=== PATIENT | male | born 2005 | race African-American/Black ===

== ENCOUNTER 2025-04-29 13:19 | Inpatient (IN) | payer OTHER ==
[~2025-04-29] VITALS: Ht 175.3 cm; Wt 63.6 kg
[2025-04-29 14:05] LABS: PLATELET COUNT (AUTO) 238 K/uL (150-450); RED BLOOD CELL COUNT(AUTO) 4.57 MIL/uL (4.50-5.90); RED CELL DISTRIBUTION WIDTH 13.2 % (11.5-14.5); WHITE BLOOD COUNT (AUTO) 3.1 K/uL (4.5-11.0)
[2025-04-29] MEDS: ONDANSETRON HCL 4 MG/2 ML VIAL IVP ONE (14:14)
[2025-04-29] MEDS: SODIUM CHLORIDE 0.9% 1,000 ML IV ONE (14:14)
[2025-04-29 14:16] LABS: CALCIUM, TOTAL 8.9 mg/dL (8.8-10.5); CREATININE 0.99 mg/dL (0.60-1.30); GLOMERULAR FILTR. RATE CALC > 60 mL/min (>60); GLUCOSE,RANDOM 153 mg/dL (70-110); SODIUM SERUM 139 mmol/L (136-145); UREA NITROGEN, BLOOD 12 mg/dL (7-18)
[2025-04-29 14:17] LABS: ACETONE, URINE NEGATIVE (NEGATIVE)
[2025-04-29 14:19] LABS: ASPARTATE AMINOTRANSFERASE 33 U/L (15-37); TOTAL PROTEIN, SERUM 7.9 g/dL (6.4-8.2)
[2025-04-29 15:00] LABS: ACETONE,BLOOD NEGATIVE (NEGATIVE)
[2025-04-29] MEDS ORDERED: ONDANSETRON HCL 4 MG/2 ML VIAL IVP PRN (15:15)
[2025-04-29 15:27] LABS: COVID AG,FIA SOURCE NASAL SWAB
[2025-04-29] MEDS: DOXYCYCLINE HYCLATE 100 MG TABLET PO ONE (15:30)
[2025-04-29] MEDS: EMTRICITABINE/TENOFOVIR 200-300 MG TABLET PO ONE (15:30)
[2025-04-29] MEDS: RALTEGRAVIR 400 MG TABLET PO ONE (15:30)
[2025-04-29 16:02] LABS: INFLUENZA TYPE A NEGATIVE FOR TYPE A (NEGATIVE); INFLUENZA TYPE B NEGATIVE FOR TYPE B (NEGATIVE); SARS-COV2 (COVID) ANTIGEN,FIA Negative (Negative)
[2025-04-29 16:25] VITALS: BP 118/56; PULSE 49; RESP 18; TEMP 97.2; O2SAT 100
[2025-04-29] MEDS: INSULIN LISPRO 100 UNITS/ML SQ PRN (17:35)
[2025-04-29 19:36] LABS: GLUCOMETER DEV NAME(LOC) 6N.1C; GLUCOSE,POINT OF CARE 241 MG/DL (70-110)
[2025-04-29] MEDS: INSULIN GLARGINE,HUM.REC.ANLOG 100 UNITS/ML SQ SCH (20:12)
[2025-04-29] MEDS: ACETAMINOPHEN 325 MG TABLET PO PRN (20:13)
[2025-04-29 20:17] LABS: APPEARANCE,URINE CLEAR (CLEAR); GLUCOSE, URINE (UA) 300-500 mg/dL (NEGATIVE); LEUKOCYTE ESTERASE ,URINE NEGATIVE (NEGATIVE); NITRATE,URINE NEGATIVE (NEGATIVE); OCCULT BLOOD,URINE NEGATIVE (NEGATIVE); SPECIFIC GRAVITIY, URINE 1.012 (1.003-1.030)
[2025-04-29] MEDS: ZOLPIDEM TARTRATE 5 MG TABLET PO PRN (20:22)
[2025-04-29 20:23] VITALS: BP 112/57; PULSE 49; RESP 18; TEMP 98.2; O2SAT 100
[2025-04-29 20:29] LABS: SQUAMOUS EPITHELIAL CELL,UR Rare /LPF (None Seen)
[2025-04-29] MEDS ORDERED: INSULIN GLARGINE,HUM.REC.ANLOG 100 UNITS/ML SQ SCH (21:00)
[2025-04-30 02:26] LABS: GLUCOMETER DEV NAME(LOC) 6N.1C; GLUCOSE,POINT OF CARE 226 MG/DL (70-110)
[2025-04-30] MEDS: DEXTROSE 50%-WATER 25 GM/50 ML SYRINGE IVP PRN (05:50)
[2025-04-30 06:02] VITALS: BP 104/50; PULSE 57; RESP 18; TEMP 97.7; O2SAT 100
[2025-04-30 07:46] LABS: GLUCOMETER DEV NAME(LOC) 6S.2; GLUCOSE,POINT OF CARE 49 MG/DL (70-110)
[2025-04-30 07:46] LABS: GLUCOMETER DEV NAME(LOC) 6S.2; GLUCOSE,POINT OF CARE 214 MG/DL (70-110)
[2025-04-30] MEDS: FAMOTIDINE 20 MG TABLET PO SCH (08:04)
[2025-04-30 08:18] VITALS: BP 102/60; RESP 18; TEMP 98.4; O2SAT 100
[2025-04-30 13:01] LABS: GLUCOMETER DEV NAME(LOC) 4E.2; GLUCOSE,POINT OF CARE 282 MG/DL (70-110)
[2025-04-30 15:35] VITALS: BP 114/72; PULSE 62; RESP 18; TEMP 98; O2SAT 99
[2025-04-30 18:05] LABS: GLUCOMETER DEV NAME(LOC) 6N.1C; GLUCOSE,POINT OF CARE 252 MG/DL (70-110)
[2025-04-30 20:20] LABS: GLUCOMETER DEV NAME(LOC) 4E.2; GLUCOSE,POINT OF CARE 262 MG/DL (70-110)
[2025-05-01 03:32] VITALS: BP 99/50; PULSE 60; RESP 17; TEMP 97.6; O2SAT 99
[2025-05-01 06:10] LABS: GLUCOMETER DEV NAME(LOC) 4E.2; GLUCOSE,POINT OF CARE 218 MG/DL (70-110)
[2025-05-01] MEDS: MAGNESIUM HYDROXIDE SUSPENSION 30 ML UDCUP PO PRN (06:51)
[2025-05-01] MEDS ORDERED: FAMO20 PO (11:40)
[2025-05-01] MEDS ORDERED: INSLAN SQ (11:41)
[2025-05-01] MEDS ORDERED: ACET-2247 PO (11:41)
[2025-05-01] MEDS ORDERED: INSU100V SQ (11:42)
[2025-05-01] MEDS ORDERED: MAGN-169 PO (11:43)
[2025-05-01 11:56] LABS: GLUCOMETER DEV NAME(LOC) 4E.2; GLUCOSE,POINT OF CARE 350 MG/DL (70-110)
[2025-05-01] MEDS ORDERED: INSULIN GLARGINE,HUM.REC.ANLOG 100 UNITS/ML SQ SCH (21:00)
[2025-05-02 07:41] LABS: GLUCOMETER DEV NAME(LOC) 6S.2; GLUCOSE,POINT OF CARE 229 MG/DL (70-110)
== END 2025-05-01 17:42 | DRG 639 ==
LOC: EMS 13:19 → EDH 15:03 → 6S 16:15
PROVIDERS: ADMIT Internal Medicine; ATTEND Internal Medicine
DX: E11.65 Type 2 diabetes mellitus with hyperglycemia (principal); E11.40 Type 2 diabetes mellitus with diabetic neuropathy, unspecified; Z20.822 Contact with and (suspected) exposure to COVID-19; Z79.4 Long term (current) use of insulin; Z83.3 Family history of diabetes mellitus
CPT/HCPCS: 80048; 80076; 81001; 81005; 82009; 82962; 83690; 85025; 86592; 87389; 87491; 87591; 87804; 96361; 96374; 96375; 99285; J0696; J1815; J2405; J7030; J7060; 36415-L1; 36415-TC